=== PATIENT | female | born 1995 | race Caucasian/White ===

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

== ENCOUNTER 2019-08-31 20:19 | Emergency (ER) | payer SELFPAY ==
[2019-08-31 20:31] VITALS: BP 122/79
[2019-08-31] MEDS ORDERED: Amoxicillin PO (*) 500 MG CAP PO ONE ×2 (21:16→21:17)
--- NOTE | 2019-08-31 21:17 | UC ---
Throat Pain/Nasal David HPI - HPI Summary HPI Summary: 24 year old woman comes in with chief complaint of 2 days of influenza-like illness with sore throat and now with losing her voice. Patient is on Tamiflu from her student health clinic. She reports that she was tested for the flu and strep was negative. She is tried various [id number] medications with which helped of relief of her symptoms. She has had fevers and body aches. - History of Current Complaint Chief Complaint: UCRespiratory Stated Complaint: VOMITING, LOSING VOICE Time Seen by Provider: 08/31/19 21:06 Hx Last Menstrual Period: 08/23/19 Pain Intensity: 4 - Allergies/Home Medications Allergies/Adverse Reactions: Allergies Allergy/AdvReac Type Severity Reaction Status Date / Time DAIRY Allergy Nausea And Uncoded 08/31/19 20:31 Vomiting GLUTEN Allergy Nausea And Uncoded 08/31/19 20:31 Vomiting Home Medications: Home Medications ARIPiprazole [Abilify] 5 mg PO DAILY 08/31/19 [History Confirmed 08/31/19] Levonorgestrel-Ethin Estradiol [Setlakin 0.15 mg-0.03 mg Tab] 1 tab PO DAILY [History Confirmed 08/31/19] buPROPion TAB* [Wellbutrin TAB*] 300 mg PO DAILY 08/31/19 [History Confirmed ] busPIRone TAB* [Buspar TAB *] 15 mg PO DAILY 08/31/19 [History Confirmed ] PMH/Surg Hx/FS Hx/Imm Hx Previously Healthy: Yes - Surgical History Surgical History: None Surgery Procedure, Year, and Place: FASCIOTOMY LEFT LEG-04/2014 Other Surgical History: Compartment syndrome - Family History Known Family History: Positive: Cardiac Disease - On mother's side of family but not in mother - Social History Alcohol Use: Occasionally Substance Use Type: None Smoking Status (MU): Never Smoked Tobacco Review of Systems All Other Systems Reviewed And Are Negative: Yes Constitutional: Positive: Fever, Chills, Other - SEE HPI Skin: Positive: Negative Eyes: Positive: Negative ENT: Positive: Sore Throat, Nasal Discharge, Sinus Congestion Respiratory: Positive: Cough Cardiovascular: Positive: Negative Gastrointestinal: Positive: Negative Motor: Positive: Negative Neurovascular: Positive: Negative Musculoskeletal: Positive: Myalgia Neurological: Positive: Negative Psychological: Positive: Negative Is Patient Immunocompromised?: No Physical Exam Triage Information Reviewed: Yes Appearance: No Pain Distress, Well-Nourished, Ill-Appearing - MILD Vital Signs: Initial Vital Signs Temp 99.5 F 08/31/19 20:27 Pulse 82 08/31/19 20:27 Resp 16 08/31/19 20:27 BP 122/79 08/31/19 20:27 Pulse Ox 100 08/31/19 20:27 Vital Signs Reviewed: Yes Eye Exam: Normal Eyes: Positive: Conjunctiva Clear ENT: Positive: Pharyngeal erythema, Nasal congestion, Nasal drainage, TMs normal , Hoarse voice, Uvula midline Neck: Positive: Supple Respiratory: Positive: Lungs clear, Normal breath sounds, No respiratory distress Cardiovascular: Positive: RRR Musculoskeletal: Positive: Strength Intact, ROM Intact Neurological: Positive: Alert, Muscle Tone Normal Psychological: Positive: Age Appropriate Behavior Skin Exam: Normal Throat Pain/Nasal Course/Dx - Course Course Of Treatment: DISCUSSED VIRAL VERSES BACTERIAL INFECTIONS AND THE ROLE OF ANTIBIOTICS. THE PATIENT PREFERS TO BE ON ANTIBIOTICS AT THIS TIME. - Differential Dx/Diagnosis Provider Diagnosis: Laryngitis, Pharyngitis Discharge ED - Sign-Out/Discharge Documenting (check all that apply): Patient Departure All imaging exams completed and their final reports reviewed: No Studies - Discharge Plan Condition: Stable Disposition: HOME Prescriptions: Amoxicillin PO (*) [Amoxicillin 500 MG CAP*] 500 mg PO TID #28 cap Patient Education Materials: Pharyngitis (ED), Laryngitis (ED) Referrals: [facility] @ [Outside] Additional Instructions: FOLLOW UP WITH YOUR DOCTOR IF NOT COMPLETELY IMPROVED. GET REEVALUATED SOONER IF NOT IMPROVED OR WORSE OR ANY QUESTIONS OR CONCERNS. - Billing Disposition and Condition Condition: STABLE Disposition: Home
== END 2019-08-31 21:27 | disposition home or self-care (01) ==
LOC: UCEAST 20:19
DX: J04.0 Acute laryngitis (principal); J02.9 Acute pharyngitis, unspecified; Z91.011 Allergy to milk products; Z91.018 Allergy to other foods
CPT/HCPCS: 87651; 99212; A9270-GY; G0463